=== PATIENT | male | born 1960 | race Caucasian/White ===

== ENCOUNTER 2024-02-20 06:43 | Day surgery (SDC) | payer BC, SELFPAY ==
[2024-02-20 12:27] VITALS: BMI 29.9
[2024-02-20 12:29] VITALS: BMI 29.9
[2024-02-20 12:43] VITALS: BP 161/88
[2024-02-20 14:57] VITALS: BP 137/75
[2024-02-20 15:00] VITALS: BP 128/78
[2024-02-20 15:15] VITALS: BP 137/81
[2024-02-20 15:28] VITALS: BP 138/79
== END 2024-02-20 16:36 | disposition home or self-care (01) ==
LOC: SDS 06:43
PROVIDERS: ATTENDING PHYSICIAN Internal Medicine Gastroenterology
DX: Z12.11 Encounter for screening for malignant neoplasm of colon (principal); D12.3 Benign neoplasm of transverse colon; K63.5 Polyp of colon; K63.89 Other specified diseases of intestine; K64.0 First degree hemorrhoids; Z86.010 Personal history of colon polyps; Z98.890 Other specified postprocedural states
CPT/HCPCS: 45388; 45385; 88305

== ENCOUNTER → 2024-04-19 07:26 | Outpatient (REF) | payer BC, SELFPAY ==
[2024-04-19 10:10] LABS: PSA, Total - Diagnostic < 0.06 ng/ml (0.0-4.0)
== END ==
LOC: REG 07:26
PROVIDERS: ATTENDING PHYSICIAN Specialist; FAMILY PHYSICIAN Family Medicine
DX: C61 Malignant neoplasm of prostate (principal)
CPT/HCPCS: 36415; 84153

== ENCOUNTER → 2024-10-19 10:39 | Outpatient (REF) | payer BC, SELFPAY ==
[2024-10-19 11:25] LABS: % Basophils 0.9 % (0-2); % Eosinophils 1.3 % (0-6); % Immature Granulocytes 0.4 % (0-0.5); % Lymphocytes 18.2 % (20.5-51.1); % Monocytes 10.1 % (1.7-9.3); % Neutrophils 69.1 % (42.2-75.2); Absolute Basophils 0.1 10^3/uL (0-0.2); Absolute Eosinophils 0.1 10^3/uL (0-0.7); Absolute Monocytes 0.6 10^3/uL (0.1-0.6); Absolute Neutrophils 3.8 10^3/uL (1.4-6.5); Hematocrit 48.4 % (39.0-52.0); Hemoglobin 16.7 g/dL (13.0-18.0); Mean Corp Hgb Conc. 34.5 g/dL (33.0-37.0); Mean Corpuscular Hgb 32.4 pg (27.0-31.0); Mean Corpuscular Volume 93.8 fL (80.0-94.0); Mean Platelet Volume 9.8 fL (7.4-10.4); Nucleated Red Blood Cells % 0 % (-); Platelet Count 220 10^3/uL (130-400); Red Blood Cell Count 5.16 10^6/uL (4.70-6.10); Red Cell Dist. Width 12.1 % (11.5-14.5); Reticulocyte Count 1.4 % (0.4-2.8); White Blood Cell Count 5.6 10^3/uL (4.8-10.8)
[2024-10-19 11:44] LABS: ALT (SGPT) 49 U/L (0-50); AST (SGOT) 47 U/L (17-59); Albumin 4.5 g/dl (3.5-5.0); Alkaline Phosphatase 53 U/L (38-126); Blood Urea Nitrogen 10 mg/dl (9-20); Calcium 9.5 mg/dl (8.4-10.2); Carbon Dioxide 31 mmol/L (22-30); Chloride 102 mmol/L (98-107); Glucose 116 mg/dl (70-99); HDL Cholesterol 42 mg/dl; LDL Cholesterol, Calculated 59 mg/dl; Sodium 141 mmol/L (135-145); Total Bilirubin 2.7 mg/dl (0.2-1.3); Total Cholesterol 116 mg/dl (50-199); Total Protein 7.3 g/dl (6.3-8.2); Triglyceride 78 mg/dl (10-149); Very Low Density Lipoprotein 15 mg/dl (0-30); eGFR > 60.00
[2024-10-21 02:26] LABS: PSA Total 0.1 ng/mL (0.0-4.0)
== END ==
LOC: REG 10:39
PROVIDERS: ATTENDING PHYSICIAN Student in an Organized Health Care Education/Training Program; FAMILY PHYSICIAN Specialist
DX: Z00.00 Encounter for general adult medical examination without abnormal findings (principal); C61 Malignant neoplasm of prostate
CPT/HCPCS: 36415; 80053; 80061; 84153; 84154; 85025; 85045

== ENCOUNTER 2025-02-27 06:13 | Day surgery (SDC) | payer BC, SELFPAY ==
[2025-02-27 11:13] VITALS: BMI 28.0
[2025-02-27 11:14] VITALS: BMI 28.0
[2025-02-27 11:15] VITALS: BP 146/72
[2025-02-27 14:35] VITALS: BP 128/84
[2025-02-27 14:45] VITALS: BP 131/81
== END 2025-02-27 15:10 | disposition home or self-care (01) ==
LOC: GI 06:13
PROVIDERS: ATTENDING PHYSICIAN Internal Medicine Gastroenterology
DX: Z12.11 Encounter for screening for malignant neoplasm of colon (principal); D12.3 Benign neoplasm of transverse colon; D12.4 Benign neoplasm of descending colon; K63.5 Polyp of colon; K62.1 Rectal polyp; K64.9 Unspecified hemorrhoids; Z98.0 Intestinal bypass and anastomosis status; Z86.0101 Personal history of adenomatous and serrated colon polyps; Z98.890 Other specified postprocedural states
CPT/HCPCS: 45385; 45380; 88305

== ENCOUNTER → 2025-04-18 08:08 | Outpatient (REF) | payer BC, SELFPAY ==
[2025-04-18 14:12] LABS: TSH Reflex To Free T4 0.99 uIU/ml (0.47-4.68)
== END ==
LOC: REG 08:08
PROVIDERS: ATTENDING PHYSICIAN Specialist; FAMILY PHYSICIAN Student in an Organized Health Care Education/Training Program; REFERRING PHYSICIAN Internal Medicine Cardiovascular Disease
DX: C61 Malignant neoplasm of prostate (principal); R00.1 Bradycardia, unspecified
CPT/HCPCS: 36415; 84153; 84443

== ENCOUNTER → 2025-04-25 08:23 | Outpatient (REF) | payer BC, SELFPAY | LOC: RCS 08:23 | PROVIDERS: ATTENDING PHYSICIAN Internal Medicine Cardiovascular Disease; FAMILY PHYSICIAN Student in an Organized Health Care Education/Training Program | DX: I25.118 Atherosclerotic heart disease of native coronary artery with other forms of angina pectoris (principal); I49.3 Ventricular premature depolarization; I10 Essential (primary) hypertension; R00.1 Bradycardia, unspecified; R94.31 Abnormal electrocardiogram [ECG] [EKG] | CPT/HCPCS: 93306 ==

== ENCOUNTER → 2025-08-11 08:50 | Outpatient (REF) | payer BC, SELFPAY | LOC: MRI 08:50 | PROVIDERS: ATTENDING PHYSICIAN Internal Medicine Cardiovascular Disease | DX: I42.2 Other hypertrophic cardiomyopathy (principal); I25.118 Atherosclerotic heart disease of native coronary artery with other forms of angina pectoris; R94.31 Abnormal electrocardiogram [ECG] [EKG] | CPT/HCPCS: 75561; 75565; A9585 ==

== ENCOUNTER → 2025-09-19 08:10 | Outpatient (REF) | payer BC, SELFPAY ==
[2025-09-19 10:09] LABS: Hematocrit 46.9 % (39.0-52.0); Hemoglobin 16.2 g/dL (13.0-18.0); Mean Corp Hgb Conc. 34.5 g/dL (33.0-37.0); Mean Corpuscular Volume 94.0 fL (80.0-94.0); Nucleated Red Blood Cells % 0 % (-); Platelet Count 247 10^3/uL (130-400); Red Cell Dist. Width 12.2 % (11.5-14.5)
[2025-09-19 10:34] LABS: Glycohemoglobin (HgbA1c) 5.6 % (4.0-5.9)
[2025-09-19 10:49] LABS: ALT (SGPT) 38 U/L (0-50); AST (SGOT) 38 U/L (17-59); Albumin 4.8 g/dl (3.5-5.0); Alkaline Phosphatase 54 U/L (38-126); Blood Urea Nitrogen 15 mg/dl (9-20); Calcium 9.7 mg/dl (8.4-10.2); Carbon Dioxide 31 mmol/L (22-30); Chloride 100 mmol/L (98-107); Glucose 104 mg/dl (70-99); HDL Cholesterol 47 mg/dl; LDL Cholesterol, Calculated 60 mg/dl; Potassium 4.3 mmol/L (3.5-5.1); Sodium 138 mmol/L (135-145); Total Protein 7.7 g/dl (6.3-8.2); Very Low Density Lipoprotein 9 mg/dl (0-30); eGFR > 60.00
[2025-09-19 11:25] LABS: TSH 1.20 uIU/ml (0.47-4.68)
[2025-09-19 12:32] LABS: Free T3 4.40 pg/ml (2.77-5.27)
== END ==
LOC: REG 08:10
PROVIDERS: ATTENDING PHYSICIAN Internal Medicine Cardiovascular Disease; FAMILY PHYSICIAN Student in an Organized Health Care Education/Training Program
DX: I42.2 Other hypertrophic cardiomyopathy (principal); Z00.00 Encounter for general adult medical examination without abnormal findings; E04.1 Nontoxic single thyroid nodule; R73.01 Impaired fasting glucose
CPT/HCPCS: 36415; 80053; 80061; 83036; 84439; 84443; 84481; 85025

== ENCOUNTER 2025-09-26 06:35 | Day surgery (SDC) | payer BC, SELFPAY ==
[2025-09-23 08:19] VITALS: BMI 30.4
[2025-09-26] VITALS (19 sets, daily range): BP systolic 110–139; BP diastolic 64–79
--- NOTE | 2025-09-26 07:21 | W.ICD.CONTRA ---
Post ICD/CANE CUTTER-D
-
History of MO?: No
LV Function
Left ventricular function study result?: Ejection Fraction >/= 40%
ACEI/ARB/ARNI
Patient already on ACEI/ARB/ARNI: No
ACEI/ARB/ARNI Not Indicated: Left Ventricular EF >/= 40%
Beta-Pepe
Patient already on Beta Pepe: Yes
[2025-09-26] MEDS: TYLENOL 650 MG PO (11:43)
--- NOTE | 2025-09-26 13:33 | W.PN.UPDATE ---
Update Note
Progress Note Update
Pt seen post DC ICD implant. Left ACW w/aquacel dressing CDI, no ht/bleeding, mildly tender with good relief from acetaminophen. Post EKG SB 58, no acute changes. Post CXR w/stable lead position, no pneumothorax. Activity limitations reviewed w/pt.
Incision check in 1 week at [facility]. Home today if device site/tele remain stable.
[2025-09-26] MEDS: ANCEF 5 IV (14:38)
--- NOTE | 2025-09-26 17:21 | ITS.CL.ICD ---
[employer] - ICD
Implantable Cardioverter Defibrillator
Procedure Report:
Date of Procedure: September 26, 2025.
Procedures: Dual chamber [employer] ICD implant.
Indication: Primary/secondary prevention ICD. Severe near syncope in a patient with hypertrophic cardiomyopathy and nonsustained monomorphic ventricular tachycardia. No heart failure. LVEF [55-60%. Normal QRS duration, 78 ms. No history of
myocardial infarction. Life expectancy exceeds 1 year. Shared decision making was employed in the office leading to the decision to proceed with device implantation. An atrial lead was placed because of significant sinus bradycardia limiting
beta-dang use.
Performing physician: Emory Murdock MD, [facility].
Implants:
Pulse Generator: [employer]; Model# D233; Serial# [id number].
Atrial Lead: [employer]: Model# 7841; Serial#[id number].
Right Ventricular Lead: [employer]; Model# 0673; Serial# [id number].
Technique: A time out was performed. A 10 mL upper extremity venogram demonstrated patent left cephalic, axillary, and subclavian veins. The procedure site was identified. The patient was anesthetized by the anesthesia service. Preoperative
cefazolin was administered. The patient was prepped and draped in the usual fashion. Local anesthetic was applied to the left prepectoral subcutaneous tissue. A 3 inch incision was made along the left deltopectoral groove. Dissection was carried to
the fascia. The left cephalic vein was easily isolated and proximal and distal control with 2-0 Vicryl suture. Using a micropuncture needle to access the cephalic vein under direct visualization a wire was advanced into the central circulation. The
ventricular lead was placed at the right ventricular apical septum with the aid of a hemostatic peel-away introducer. The ventricular lead was secured to the pectoralis muscle and fascia with two 0-silk sutures. The axillary vein was then accessed
with a percutaneous puncture. A subcutaneous pocket was created. The 0.35 wire was brought into the pocket and a hemostatic peel-away introducer sheath was used to place the right atrial lead. The atrial lead was then placed in the right atrial
appendage. The atrial lead was secured to the pectoralis muscle and fascia with two 0-silk sutures. 10 volt pacing did not capture the diaphragm from any lead. Hemostasis was excellent. The leads were appropriately attached to the device. The pocket
was irrigated with antibiotic solution. The device and leads were placed in the pocket. The incision was closed in three layers with absorbable suture. Steri-strips and a a silver impregnated dressing were placed. Estimated blood loss 10 ml. There
were no complications. Fluoroscopy time: 3.2 minutes and DAP 5.8 mGyCM2. The device was then interrogated after skin closure.
System Analysis:
RA lead: P: 3.6 mV; Threshold: 0.6 V @ 0.4 ms; Impedance: 634 ohms.
RV lead: R: 16.4 mV; Threshold: 0.3 V @ 0.4 ms; Impedance: 445 ohms. Shock imp 63 ohms
Final Programming: Monitor 170 bpm; Tachy Therapy: VT/VF:200 bpm; Ronal: DDDR 60-130 bpm.
Conclusion: Uncomplicated [employer] dual chamber ICD implant. The ICD system is MRI safe/conditional.
Recommendation: Routine post ICD care.
cc: Ernestina Blanco MD.
== END 2025-09-26 14:30 | disposition home or self-care (01) ==
LOC: CATH 06:35
PROVIDERS: ATTENDING PHYSICIAN Internal Medicine Cardiovascular Disease; FAMILY PHYSICIAN Student in an Organized Health Care Education/Training Program
DX: I47.29 Other ventricular tachycardia (principal); R55 Syncope and collapse; I42.2 Other hypertrophic cardiomyopathy; I25.118 Atherosclerotic heart disease of native coronary artery with other forms of angina pectoris; E78.2 Mixed hyperlipidemia; I10 Essential (primary) hypertension; Z79.82 Long term (current) use of aspirin; Z79.899 Other long term (current) drug therapy; I49.8 Other specified cardiac arrhythmias
CPT/HCPCS: 33249; 71045; 93005; C1721; C1777; C1892; C1898; Q9967

== ENCOUNTER → 2025-10-06 16:35 | Outpatient (REF) | payer BC, SELFPAY ==
[2025-10-06 18:26] LABS: PSA, Total - Diagnostic 0.15 ng/ml (0.0-4.0)
== END ==
LOC: REG 16:35
PROVIDERS: ATTENDING PHYSICIAN Specialist; FAMILY PHYSICIAN Student in an Organized Health Care Education/Training Program
DX: C61 Malignant neoplasm of prostate (principal)
CPT/HCPCS: 36415; 84153